=== PATIENT | male | born 1985 ===

== ENCOUNTER 2017-03-08 22:05 | Emergency (ER) | payer OTHER ==
[~2017-03-08] VITALS: Ht 162.6 cm; Wt 102.0 kg
[2017-03-08 22:11] VITALS: Ht 162.6 cm; Wt 102.0 kg
[2017-03-08 22:55] VITALS: BP 102/77; PULSE 105; RESP 16
--- NOTE | 2017-03-08 23:00 | ERD ---
ER Documentation Chief Complaint Date/Time DATE: 03/08/17 TIME: 22:57 Chief Complaint Sharp chest pain, nonradiating, +provoked w/ movement upon arrest x 20 min HPI This is a 31-year-old male with sharp chest pain, nonradiating that was provoked with movement upon arrest 20 minutes ago. Pain is mild to moderate intensity. No associated shortness of breath. No nausea no vomiting no fevers no chills. No diaphoresis. No other current complaints. ROS All systems reviewed and are negative except as per history of present illness. Allergies Allergies: Coded Allergies: No Known Allergy (Unverified , 03/08/17) PMhx/Soc Medical and Surgical Hx: pt denies Surgical Hx Hx Respiratory Disorders: Yes (asthma) Hx Cardiac Disorders: Yes ("irregular heart rhythm" nonspecified, noncompliant w/ meds) Hx Alcohol Use: Yes (2x per week) Hx Substance Use: No Hx Tobacco Use: No Smoking Status: Unknown if ever smoked Physical Exam Vitals Vital Signs Date Time Temp Pulse Resp B/P Pulse Ox O2 Delivery O2 Flow Rate FiO2 03/08/17 22:55 105 16 102/77 100 Room Air 03/08/17 22:11 98.8 118 20 146/96 99 Physical Exam Const: [] Head: Atraumatic Eyes: Normal Conjunctiva ENT: Normal External Ears, Nose and Mouth. Neck: Full range of motion..~ No meningismus. Resp: Clear to auscultation bilaterally Cardio: Regular rate and rhythm, no murmurs Abd: Soft, non tender, non distended. Normal bowel sounds Skin: No petechiae or rashes Back: No midline or flank tenderness Ext: No cyanosis, or edema Neur: Awake and alert Psych: Normal Mood and Affect Procedures/MDM EKG: Rate/Rhythm: Sinus tachycardia 119 bpm QRS, ST, T-waves: [No changes consistent w/ acute ischemia] Impression: Sinus tachycardia Chest X-ray 1V Interpreted by me: Soft Tissue: No acute abnormalities Bones: No acute abnormalities Mediastinum/Cardiac Silhouette/Lungs: [No acute abnormalities] Patient's thoracic symptoms have stabilized while in the department and are stable for outpatient follow up. Exam and work up not consistent w/ ischemia, arrhythmia, PE or dissection. Departure Diagnosis: Primary Impression: Chest pain Chest pain type: unspecified Qualified Code: R07.9 - Chest pain, unspecified type Condition: Stable CHOLO DOMINGUEZ Mar 08, 2017 23:00
--- NOTE | 2017-03-08 23:04 | RADRPT ---
PROCEDURE: XR Chest. CLINICAL INDICATION: Chest pain. TECHNIQUE: Portable AP upright view of the chest was obtained. COMPARISON: None. FINDINGS: The cardiomediastinal silhouette is within normal limits. The lungs are clear. There is no evidenc e for pleural effusion, pneumothorax or pulmonary vascular congestion. The osseous structures are i ntact with no evidence for acute abnormality. RPTAT:HJJR IMPRESSION: No evidence for acute intrathoracic pathology. Physician Flynn Date Time Electronically viewed and signed by Physician Flynn on 03/08/2017 23:04 JR/
== END 2017-03-08 22:06 ==
LOC: E/R 22:05
DX: R07.9 Chest pain, unspecified (principal); J45.909 Unspecified asthma, uncomplicated
CPT/HCPCS: 71010; 93005